=== PATIENT | male | born 1945 | race Caucasian/White ===

== ENCOUNTER 2016-11-15 11:37 | Emergency (ER) | payer MEDICARE ==
[~2016-11-15] VITALS: Ht 185.4 cm; Wt 92.0 kg
[2016-11-15 11:43] VITALS: BP 218/101; PULSE 87; RESP 18; TEMP 99.3; O2SAT 99
[2016-11-15 11:50] VITALS: BP 187/85; PULSE 84; RESP 18; O2SAT 99
--- NOTE | 2016-11-15 12:24 | PD ---
HPI Chief Complaint: Fall Time Seen by Provider: 11:46 Travel History International Travel<30 days: No Contact w/Intl Traveler<30days: No Traveled to known affect area: No History of Present Illness HPI 71-year-old male complains of right-sided headache, right chest wall pain, right elbow pain and right hip pain. Patient felt this morning on the right side. Patient denies loss of consciousness. Patient complained of burning pain on the right side the head, burning pain in the right-sided chest wall area and mild pain on the right elbow and right hip. Patient denies any visual change. Patient denies any neck pain. Patient denies any shortness of breath. Patient denies abdominal pain. Patient denies any focal weakness or numbness of extremity. Patient has history of hypertension, hyperlipidemia. Patient has history of CAD status post CABG, cholecystectomy. PFSH Past Medical History High Cholesterol: Yes Hypertension: Yes Past Surgical History Cholecystectomy: Yes Coronary Artery Bypass Graft: Yes (X 3 ) Social History Alcohol Use: No Tobacco Use: No Substance Use: No Allergies-Medications (Allergen,Severity, Reaction): Coded Allergies: No Known Allergies (Unverified , 11/15/16) Review of Systems General / Constitutional: No: Fever Eyes: No: Visual changes HENT: Positive: Headaches Cardiovascular: Positive: Chest Pain or Discomfort Respiratory: No: Shortness of Breath Gastrointestinal: No: Abdominal Pain Genitourinary: No: Dysuria Musculoskeletal: Positive: Pain Skin: No Rash Neurologic: No: Weakness Psychiatric: No: Depression Endocrine: No: Polydipsia Hematologic/Lymphatic: No: Easy Bruising Physical Exam Narrative GENERAL: Well-nourished, well-developed patient. SKIN: Focused skin assessment warm/dry. HEAD: Normocephalic. Mild tenderness on palpation right side the scalp area. EYES: No scleral icterus. No injection or drainage. Pupils 2 mm equal reactive. NECK: Supple, trachea midline. No JVD or lymphadenopathy. No tenderness on palpation neck area. CARDIOVASCULAR: Regular rate and rhythm without murmurs, gallops, or rubs. RESPIRATORY: Breath sounds equal bilaterally. No accessory muscle use. GASTROINTESTINAL: Abdomen soft, non-tender, nondistended. MUSCULOSKELETAL: Patient has moderate tenderness on palpation right chest where area low rib cage area. No crepitus no deformity noted. Mild tenderness posterior aspect the right elbow joint around olecranon area. Full range of motion right elbow joint. Mild tenderness lateral aspect the right hip joint. Full range of motion the right hip joint. BACK: Nontender without obvious deformity. No CVA tenderness. Neurologic exam normal. Data Data Last Documented VS Vital Signs Date Time Temp Pulse Resp B/P (MAP) Pulse Ox O2 Delivery O2 Flow Rate FiO2 11/15/16 12:50 71 18 162/81 (108) 99 Room Air 11/15/16 11:[address] Brain W/O Iv Contrast(Rout) (11/15/16 11:47) Ct Thorax/ Chest Wo Iv Contras (11/15/16 11:47) Elbow, Complete (4 Vws) (11/15/16 11:47) Hip, Uni(Ap&Lat) W Ap Pelvis (11/15/16 11:47) Chest, Single Ap (11/15/16 11:47) MDM Medical Decision Making Medical Screen Exam Complete: Yes Emergency Medical Condition: Yes Interpretation(s) Last Impressions Hip and Pelvis X-Ray 11/15/161146 Signed Impressions: Service Date/Time: Tuesday, November 15, 2016 12:16 - CONCLUSION: No evidence of fracture or dislocation. Adams Montgomery MD Elbow X-Ray 11/15/161146 Signed Impressions: Service Date/Time: Tuesday, November 15, 2016 12:19 - CONCLUSION: Mild soft tissue swelling. No evidence of fracture or dislocation. Adams Montgomery MD Chest X-Ray 11/15/161146 Signed Impressions: Service Date/Time: Tuesday, November 15, 2016 12:16 - CONCLUSION: No acute disease. Status post CABG. Adams Montgomery MD Chest CT 11/15/16 114 Signed Impressions: Service Date/Time: Tuesday, November 15, 2016 12:29 - CONCLUSION: 1. No acute disease. 2. Status post CABG 3. Calcific coronary artery disease. Adams Montgomery MD Differential Diagnosis Differential diagnosis including contusion, fracture, hemopneumothorax. Narrative Course 71-year-old male with head injury, chest injury, right elbow injury, right hip injury. Lortab 5/325, one tablet by mouth given. Diagnosis Primary Impression: Closed head injury Qualified Codes: S09.90XA - Unspecified injury of head, initial encounter Additional Impression: Multiple contusions Patient Instructions: General Instructions Additional Instructions: Hydrocodone as needed for pain. Head trauma instructions given. Follow-up with personal physician. Return as needed. Med/Other Pt SpecificInfo: Prescription(s) given Scripts Hydrocodone-Acetaminophen ([place]) 5-325 mg Tab 1 TAB PO Q6H Y for PAIN, #30 TAB 0 Refills Prov: Eduardo Porter MD 11/15/16 Disposition: 01 DISCHARGE HOME Condition: Stable Eduardo Porter MD Nov 15, 2016 12:24
[2016-11-15 12:50] VITALS: BP 162/81; PULSE 71; RESP 18; O2SAT 99
--- NOTE | 2016-11-15 12:53 | RADRPT ---
EXAM DATE/TIME: 11/15/2016 12:16 [facility] COMPARISON: No previous studies available for comparison. INDICATIONS : Fall, chest pain. MEDICAL HISTORY : Cardiovascular disease. SURGICAL HISTORY : CABG. ENCOUNTER: Initial ACUITY: 1 day PAIN SCORE: 3/10 LOCATION: Bilateral chest FINDINGS: A single view of the chest demonstrates the lungs to be symmetrically aerated without evidence of mas s, infiltrate or effusion. Postsurgical changes from prior CABG are noted. The cardiomediastinal con tours are otherwise unremarkable. Osseous structures are intact. CONCLUSION: No acute disease. Status post CABG. Adams Montgomery MD on November 15, 2016 at 12:51 Board Certified Radiologist. This report was verified electronically.
--- NOTE | 2016-11-15 12:54 | RADRPT ---
EXAM DATE/TIME: 11/15/2016 12:16 [facility] COMPARISON: No previous studies available for comparison. INDICATIONS : Fall, right hip pain. MEDICAL HISTORY : None. SURGICAL HISTORY : None. ENCOUNTER: Initial ACUITY: 1 day PAIN SCORE: 6/10 LOCATION: Right hip FINDINGS: Examination of the right hip was performed with AP Pelvis. The primary and secondary trabecular clark memo of the femoral neck is intact. The hip joint is of normal width without significant sclerosis or bony hypertrophy. The acetabulum is grossly intact. CONCLUSION: No evidence of fracture or dislocation. Adams Montgomery MD on November 15, 2016 at 12:52 Board Certified Radiologist. This report was verified electronically.
--- NOTE | 2016-11-15 12:56 | RADRPT ---
EXAM DATE/TIME: 11/15/2016 12:19 [facility] COMPARISON: No previous studies available for comparison. INDICATIONS : Fall, right elbow pain. MEDICAL HISTORY : None. SURGICAL HISTORY : None. ENCOUNTER: Initial ACUITY: 1 day PAIN SCORE: 5/10 LOCATION: Right elbow FINDINGS: Multiple view examination of the right elbow demonstrates no joint effusion, or fracture. Mild soft t issue swelling is seen in the proximal forearm. The osseous structures are in normal alignment. Bony mineralization is normal. CONCLUSION: Mild soft tissue swelling. No evidence of fracture or dislocation. Adams Montgomery MD on November 15, 2016 at 12:53 Board Certified Radiologist. This report was verified electronically.
--- NOTE | 2016-11-15 12:58 | RADRPT ---
EXAM DATE/TIME: 11/15/2016 12:26 [facility] COMPARISON: No previous studies available for comparison. INDICATIONS : Fall. Hit head. RADIATION DOSE: 56.35 CTDIvol (mGy) MEDICAL HISTORY : Hypertension. SURGICAL HISTORY : CABG Cholecystectomy. ENCOUNTER: Initial ACUITY: 1 day PAIN SCALE: 7/10 LOCATION: cranial TECHNIQUE: Multiple contiguous axial images were obtained of the head. Using automated exposure control and adj ustment of the mA and/or kV according to patient size, radiation dose was kept as low as reasonably a chievable to obtain optimal diagnostic quality images. DICOM format image data is available electro nically for review and comparison. FINDINGS: CEREBRUM: The ventricles are normal for age. No evidence of midline shift, mass lesion, hemorrhage or acute in farction. No extra-axial fluid collections are seen. POSTERIOR FOSSA: The cerebellum and brainstem are intact. The 4th ventricle is midline. The cerebellopontine angle i s unremarkable. EXTRACRANIAL: The visualized portion of the orbits is intact. SKULL: The calvaria is intact. No evidence of skull fracture. CONCLUSION: No acute disease. No evidence of acute infarct, hemorrhage, mass or edema. Intact skull Adams Montgomery MD on November 15, 2016 at 12:55 Board Certified Radiologist. This report was verified electronically.
--- NOTE | 2016-11-15 13:00 | RADRPT ---
EXAM DATE/TIME: 11/15/2016 12:29 [facility] COMPARISON: No previous studies available for comparison. INDICATIONS : Fall. Anterior and right sided chest pain. RADIATION DOSE: 8.37 CTDIvol (mGy) MEDICAL HISTORY : Hypertension. SURGICAL HISTORY : CABG Cholecystectomy. ENCOUNTER: Initial ACUITY: 1 day PAIN SCALE: 7/10 LOCATION: chest TECHNIQUE: Volumetric scanning of the chest was performed. Using automated exposure control and adjustment of t he mA and/or kV according to patient size, radiation dose was kept as low as reasonably achievable to obtain optimal diagnostic quality images. DICOM format image data is available electronically for r eview and comparison. Follow-up recommendations for detected pulmonary nodules are based at a minimum on nodule size and pa tient risk factors according to Fleischner Society Guidelines. FINDINGS: LUNGS: There is no consolidation or pneumothorax. No concerning pulmonary nodule is visualized. PLEURAE: There is no pleural thickening or pleural effusion. MEDIASTINUM: The heart and great vessels demonstrate no acute abnormality. Postsurgical changes from prior CABG ar e noted. Coronary arteries are heavily calcified. There is no mediastinal or hilar lymphadenopathy. AXILLAE: Within normal limits. No lymphadenopathy. MUSCULOSKELETAL: Within normal limits for patient age. MISCELLANEOUS: The visualized upper abdominal organs demonstrate no acute abnormality. CONCLUSION: 1. No acute disease. 2. Status post CABG 3. Calcific coronary artery disease. Adams Montgomery MD on November 15, 2016 at 12:56 Board Certified Radiologist. This report was verified electronically.
[2016-11-15] MEDS ORDERED: NORC5TAB PO (13:25)
--- NOTE | 2016-11-16 13:51 | EKG ---
Date Performed: 11/15/2016 Time Performed: 11:51:11 PTAGE: 71 years EKG: Sinus rhythm WITH OCCASIONAL VENTRICULAR PREMATURE COMPLEXES INFERIOR MYOCARDIAL INFARCTION ABNORMAL ECG NO PREVIOUS TRACING DOCTOR: Evens Pinedo Interpretating Date/Time 11/16/2016 13:50:31
== END 2016-11-15 14:15 | disposition home or self-care (01) ==
LOC: NEPE 11:37
DX: S09.90XA Unspecified injury of head, initial encounter (principal); T14.8 Other injury of unspecified body region; M25.521 Pain in right elbow; M25.551 Pain in right hip; E78.5 Hyperlipidemia, unspecified; I10 Essential (primary) hypertension; I25.10 Atherosclerotic heart disease of native coronary artery without angina pectoris; W19.XXXA Unspecified fall, initial encounter; Z95.1 Presence of aortocoronary bypass graft
CPT/HCPCS: 70450; 71010; 71250; 73080; 73502; 93005; 99285